=== PATIENT | male | born 1980 | race Caucasian/White ===

== ENCOUNTER 2019-07-19 20:43 | Emergency (ER) | payer MEDICAID ==
[~2019-07-19] VITALS: Ht 182.9 cm; Wt 72.3 kg
[2019-07-19 20:48] VITALS: BP 126/87
[2019-07-19] MEDS ORDERED: ketorolac tromethamine 15mg/ml inj. IM ONE (23:10)
[2019-07-19] MEDS ORDERED: IBUP-1985 PO (23:11)
== END 2019-07-19 23:30 | disposition home or self-care (01) ==
LOC: ER 20:43
DX: M25.521 Pain in right elbow (principal); M79.601 Pain in right arm; F17.200 Nicotine dependence, unspecified, uncomplicated; F10.99 Alcohol use, unspecified with unspecified alcohol-induced disorder; Z98.890 Other specified postprocedural states; Z86.14 Personal history of Methicillin resistant Staphylococcus aureus infection; Z79.899 Other long term (current) drug therapy; Y90.9 Presence of alcohol in blood, level not specified
CPT/HCPCS: 73080; 96372; 99283; J1885

== ENCOUNTER 2019-08-29 22:06 | Emergency (ER) | payer MEDICAID, OTHER ==
[~2019-08-29] VITALS: Ht 182.9 cm; Wt 75.0 kg
[~2019-08-29 22:06] MED LIST: IBUP-1985 PO
[2019-08-29 22:08] VITALS: BP 164/121
[2019-08-29] MEDS ORDERED: ketorolac trometh inj. 60 MG/2 ML VIAL IM ONE (22:55)
[2019-08-29] MEDS ORDERED: MELO-102 PO (22:55)
== END 2019-08-29 23:27 | disposition home or self-care (01) ==
LOC: ER 22:08
DX: M79.641 Pain in right hand (principal); Z98.890 Other specified postprocedural states; Z72.89 Other problems related to lifestyle; X50.9XXA Other and unspecified overexertion or strenuous movements or postures, initial encounter; Y93.89 Activity, other specified; Y92.89 Other specified places as the place of occurrence of the external cause; Y99.8 Other external cause status
CPT/HCPCS: 29125; 73130; 96372; 99283; J1885

== ENCOUNTER 2022-02-06 12:46 | Emergency (ER) | payer MEDICAID, OTHER ==
[~2022-02-06] VITALS: Ht 182.9 cm; Wt 77.3 kg
[~2022-02-06 12:46] MED LIST changes: +MELO-102 PO
[2022-02-06 12:53] VITALS: BP 165/106
[2022-02-06 15:50] LABS: BASOPHILS % (AUTO) 0.5 % (0-1); EOSINOPHILS # (AUTO) 0.2 X10'3 (0-0.9); HEMATOCRIT 42.2 % (42.0-52.0); HEMOGLOBIN 14.3 g/dl (14.0-17.9); LYMPHOCYTES # (AUTO) 1.4 X10'3 (1.1-4.8); LYMPHOCYTES % (AUTO) 23.4 % (21-51); MEAN CORPUSCULAR HEMOGLOBIN 29.9 PG (27.0-31.0); MEAN CORPUSCULAR VOLUME 88.1 FL (78-98); MEAN PLATELET VOLUME 8.8 FL (7.4-10.4); MONOCYTES # (AUTO) 0.7 X10'3 (0-0.9); MONOCYTES % (AUTO) 11.3 % (2-12); NEUTROPHILS # (AUTO) 3.6 X10'3 (1.8-7.7); NEUTROPHILS % (AUTO) 60.8 % (42-75); PLATELET COUNT 304 X10'3 (140-440); RED BLOOD COUNT 4.79 X10'6 (4.70-6.10); RED CELL DISTRIBUTION WIDTH 13.3 % (11.5-14.5)
[2022-02-06 15:54] LABS: ALANINE AMINOTRANSFERASE 166 U/L (12-78); ALBUMIN 3.5 G/DL (3.4-5.0); ALKALINE PHOSPHATASE 186 IU/L (46-116); ANION GAP 10 (8-16); ASPARTATE AMINO TRANSFERASE 131 U/L (10-37); BILIRUBIN,TOTAL 0.3 MG/DL (0.1-1.0); BLOOD UREA NITROGEN 21 MG/DL (7-18); BUN/CREATININE RATIO 23.9 (5.4-32.0); CALCIUM 8.3 MG/DL (8.5-10.1); CHLORIDE 104 MMOL/L (99-107); CREATININE 0.88 MG/DL (0.60-1.10); GLUCOSE 119 MG/DL (70-104); POTASSIUM 3.7 MMOL/L (3.5-5.1); SODIUM 140 MMOL/L (135-145); TOTAL CARBON DIOXIDE 25.7 MMOL/L (24-32); TOTAL PROTEIN 7.1 G/DL (6.4-8.2); eGFR > 90 ML/MIN
[2022-02-06] MEDS ORDERED: clindamycin 150mg capsule PO ONE (15:55)
[2022-02-06] MEDS ORDERED: CLIN150C2 PO (16:06)
== END 2022-02-06 16:34 | disposition home or self-care (01) ==
LOC: ER 12:47
DX: S81.831D Puncture wound without foreign body, right lower leg, subsequent encounter (principal); R74.02 Elevation of levels of lactic acid dehydrogenase [LDH]; X58.XXXD Exposure to other specified factors, subsequent encounter; Z79.2 Long term (current) use of antibiotics
CPT/HCPCS: 36415; 73590; 80053; 83735; 84145; 85025; 93971; 99285